=== PATIENT | female | born 1945 | race Caucasian/White ===

== ENCOUNTER 2017-05-31 06:09 | Emergency (ER) | payer MEDICARE ==
[~2017-05-31] VITALS: Ht 157.4 cm; Wt 108.0 kg
[2017-05-31 06:09] VITALS: BP 158/64
[~2017-05-31 06:09] MED LIST: ASPIRIN81 M1 PO; ASPRIN PO; BYETTA10 MCG/0.0 PO; CALCIUM 600600 M2 PO; CALCIUM600 M2 PO; CHOLESTEROL MA600 MG PO; CIPROFLOXACIN500 MG PO; DARVOCET N 1001 TAB PO; FISH OIL 10001000 MG PO; HYDROCODONE BIT1 T11 PO; KEFLEX500 MG PO; LASIX20 MG PO; LEVAQUIN750 MG PO; METFORMIN1000 MG PO; METFORMIN500 MG PO; METOPROLOL SR50 MG PO; MOBIC15 MG PO; NEURONTIN100 MG PO; NEURONTIN300 MG PO; NORCO 325 MG-51 TAB PO; PLAVIX75 MG PO; PRILOSEC20 M1 PO; PRILOSEC40 MG PO; PRINIVIL20 MG PO; PROCARDIA10 MG PO; TRAMADOL50 MG PO; ULTRAM50 MG PO; VICTOZA6 MG/ML SC; VITAMIN D31000 IU PO; VITAMIN E100 I1 PO; ZANTAC150 MG PO; ZOCOR20 MG PO; ZOCOR40 MG PO; [UNRECOGNIZED DRUG - OTHER] PO
[2017-05-31] MEDS ORDERED: CARVEDILOL12.5 MG PO (06:18)
[2017-05-31] MEDS ORDERED: OXYBUTYNIN5 MG PO (06:22)
[2017-05-31] MEDS ORDERED: COCONUT OIL1000 MG PO (06:23)
[2017-05-31] MEDS ORDERED: CINNAMON OIL 1 M1 ML PO (06:24)
[2017-05-31] MEDS ORDERED: TRULICITY0.75 MG/0. SC (06:25)
[2017-05-31] MEDS ORDERED: TURMERIC500 MG PO (06:25)
[2017-05-31 06:38] LABS: BASO % 0.2 % (0.0-1.0); EOS # 0.2 10*3/uL (0.0-0.4); EOS % 2.6 % (1.0-4.0); HEMATOCRIT 37.5 % (37.0-47.0); HEMOGLOBIN 11.6 g/dl (12.0-16.0); LYMPH # 1.8 10*3/uL (1.3-4.4); LYMPH % 19.7 % (27.0-41.0); MEAN CELL VOLUME 86.2 fl (81.0-99.0); MEAN CORPUSCULAR HGB 26.7 pg (27.0-31.0); MEAN CORPUSCULAR HGB CONC 30.9 g/dl (33.0-37.0); MEAN PLATELET VOLUME 10.8 fl (9.6-12.3); MONO # 0.6 10*3/uL (0.1-1.0); MONO % 6.4 % (3.0-9.0); NEUT # 6.3 10*3/uL (2.3-7.9); NEUT % 70.8 % (47.0-73.0); PLATELET COUNT AUTOMATED 179 10*3/uL (130-400); RED BLOOD COUNT 4.35 10*6/uL (4.10-5.10); RED CELL DISTRI WIDTH 15.8 % (0-14.5)
[2017-05-31 06:48] LABS: INTERNATIONAL NORM RATIO 1.1 (2.0-3.5); PROTHROMBIN TIME 11.3 SECONDS (9.0-12.4)
[2017-05-31 06:56] LABS: ALBUMIN 3.4 gm/dl (3.1-4.5); ALKALINE PHOSPHATASE 80 U/L (45-117); BILIRUBIN, TOTAL 0.4 mg/dl (0.2-1.0); BUN 17 mg/dl (7-24); CARBON DIOXIDE 26 mmol/L (21-32); CHLORIDE 103 mmol/L (98-107); EST GLOM FILT AFRICAN AMERICAN > 60 ml/min; GLUCOSE 193 mg/dL (65-99); MAGNESIUM 2.1 mg/dL (1.5-2.1); POTASSIUM 4.1 mmol/L (3.5-5.1); SGOT/AST 17 IU/L (3-35); SGPT/ALT 18 U/L (12-78); SODIUM 139 mmol/L (136-145)
[2017-05-31 07:02] LABS: TROPONIN I < 0.015 ng/ml (<0.045)
[2017-05-31] MEDS ORDERED: IMODIUM A-D2 M3 PO (07:42)
== END 2017-05-31 07:49 | disposition home or self-care (01) ==
LOC: ED 06:09
PROVIDERS: Student in an Organized Health Care Education/Training Program
DX: R19.7 Diarrhea, unspecified (principal); R10.9 Unspecified abdominal pain; I11.0 Hypertensive heart disease with heart failure; I50.9 Heart failure, unspecified; J44.9 Chronic obstructive pulmonary disease, unspecified; K21.9 Gastro-esophageal reflux disease without esophagitis; E11.9 Type 2 diabetes mellitus without complications; Z88.1 Allergy status to other antibiotic agents; Z88.2 Allergy status to sulfonamides; Z79.899 Other long term (current) drug therapy

== ENCOUNTER 2017-09-06 15:24 | Inpatient (IN) | payer MEDICARE ==
[~2017-09-06] VITALS: Ht 157.4 cm; Wt 108.0 kg
[~2017-09-06 15:24] MED LIST changes: +CARVEDILOL12.5 MG PO; +CINNAMON OIL 1 M1 ML PO; +COCONUT OIL1000 MG PO; +IMODIUM A-D2 M3 PO; +OXYBUTYNIN5 MG PO; +TRULICITY0.75 MG/0. SC; +TURMERIC500 MG PO
[2017-09-06 15:43] VITALS: BP 168/90
[2017-09-06 16:24] LABS: BASO % 0.3 % (0.0-1.0); EOS # 0.3 10*3/uL (0.0-0.4); EOS % 4.5 % (1.0-4.0); HEMATOCRIT 37.9 % (37.0-47.0); HEMOGLOBIN 11.8 g/dl (12.0-16.0); LYMPH # 1.4 10*3/uL (1.3-4.4); LYMPH % 19.8 % (27.0-41.0); MEAN CELL VOLUME 85.7 fl (81.0-99.0); MEAN CORPUSCULAR HGB 26.7 pg (27.0-31.0); MEAN CORPUSCULAR HGB CONC 31.1 g/dl (33.0-37.0); MEAN PLATELET VOLUME 10.2 fl (9.6-12.3); MONO # 0.6 10*3/uL (0.1-1.0); MONO % 8.6 % (3.0-9.0); NEUT # 4.6 10*3/uL (2.3-7.9); NEUT % 66.4 % (47.0-73.0); PLATELET COUNT AUTOMATED 198 10*3/uL (130-400); RED BLOOD COUNT 4.42 10*6/uL (4.10-5.10); RED CELL DISTRI WIDTH 15.5 % (0-14.5); WHITE BLOOD COUNT 6.9 10*3/uL (4.8-10.8)
[2017-09-06 16:32] LABS: ACT PARTIAL THROMBO TIME 25.1 SECONDS (20.8-31.5); INTERNATIONAL NORM RATIO 1.1 (2.0-3.5)
[2017-09-06 16:43] LABS: ALBUMIN 3.1 gm/dl (3.1-4.5); BUN 9 mg/dl (7-24); CHLORIDE 102 mmol/L (98-107); MAGNESIUM 2.2 mg/dL (1.5-2.1); POTASSIUM 4.4 mmol/L (3.5-5.1); SGOT/AST 11 IU/L (3-35); SGPT/ALT 17 U/L (12-78); SODIUM 141 mmol/L (136-145); TOTAL PROTEIN 7.4 gm/dL (6.4-8.2)
[2017-09-06 16:46] LABS: ALKALINE PHOSPHATASE 85 U/L (45-117); TROPONIN I < 0.015 ng/ml (<0.045)
[2017-09-06] MEDS ORDERED: LOSARTAN POTASS50 M1 PO (17:34)
[2017-09-06 17:37] VITALS: BP 130/76
[2017-09-06] MEDS ORDERED: CLEOCIN HCL300 MG PO (17:37)
--- NOTE | 2017-09-06 17:44 | NUR ---
PT STABLE AND READY FOR TRANSPORT TO THE FLOOR.
[2017-09-06 17:53] VITALS: BP 154/71
--- NOTE | 2017-09-06 18:05 | NUR ---
A 72, admitted to , under the services of ANISH Damon DO with a diagnosis of CHEST PAIN. Chief complaint is LEFT SIDE BREAST PAIN INTO THE CHEST WITH ONSET OF PAIN STARTING SEVERAL DAYS AGO. C/O HEAVINESS ON THE LEFT SIDE WITH INTERMITTENT PAIN RADIATING INTO THE BACK. Patient arrived via stretcher from ER. Monitor applied. Initial assessment completed. Vital signs taken and recorded. ANISH DAMON DO notified of admission to the unit. Orders received. See assessment for past medical history, medications and allergies. Patient and/or family oriented to unit. [facility] visitation policy reviewed. Clothing/patient valuable form completed. JAELYN AVENDANO
[2017-09-06 18:07] VITALS: BP 154/71
[2017-09-06 20:00] VITALS: BP 158/89
[2017-09-07] VITALS: BP 139/83
--- NOTE | 2017-09-07 01:07 | NUR ---
MISSED 2200 DOSE OF CLYNDAMICIN GIVEN UN SCHEDULED.
[2017-09-07 06:22] LABS: BASO % 0.4 % (0.0-1.0); EOS # 0.3 10*3/uL (0.0-0.4); EOS % 5.1 % (1.0-4.0); HEMATOCRIT 35.7 % (37.0-47.0); HEMOGLOBIN 11.1 g/dl (12.0-16.0); LYMPH # 1.5 10*3/uL (1.3-4.4); LYMPH % 26.7 % (27.0-41.0); MEAN CELL VOLUME 86.7 fl (81.0-99.0); MEAN CORPUSCULAR HGB 26.9 pg (27.0-31.0); MEAN CORPUSCULAR HGB CONC 31.1 g/dl (33.0-37.0); MONO # 0.5 10*3/uL (0.1-1.0); MONO % 8.4 % (3.0-9.0); NEUT # 3.4 10*3/uL (2.3-7.9); NEUT % 58.9 % (47.0-73.0); PLATELET COUNT AUTOMATED 168 10*3/uL (130-400); RED BLOOD COUNT 4.12 10*6/uL (4.10-5.10); RED CELL DISTRI WIDTH 15.5 % (0-14.5); WHITE BLOOD COUNT 5.7 10*3/uL (4.8-10.8)
[2017-09-07 06:32] LABS: ALBUMIN 2.9 gm/dl (3.1-4.5); ALKALINE PHOSPHATASE 72 U/L (45-117); BUN 10 mg/dl (7-24); CHLORIDE 105 mmol/L (98-107); CREATININE 0.56 mg/dL (0.55-1.02); MAGNESIUM 2.1 mg/dL (1.5-2.1); PHOSPHOROUS 3.6 mg/dL (2.5-4.9); SGOT/AST 8 IU/L (3-35); SGPT/ALT 14 U/L (12-78); SODIUM 141 mmol/L (136-145); TOTAL PROTEIN 6.5 gm/dL (6.4-8.2)
[2017-09-07 08:00] VITALS: BP 154/82
[2017-09-07 08:23] LABS: VITAMIN D, 25-HYDROXY 33.9 ng/mL (30-100)
--- NOTE | 2017-09-07 13:35 | NUR ---
DISCHARGED HOME AFTER INSTRUCTIONS GIVEN.
== END 2017-09-07 13:35 | disposition home or self-care (01) | DRG 392 ==
LOC: ED 15:24 → EDHOLD 16:33 → 4E 16:49
PROVIDERS: Emergency Medicine; Internal Medicine Nephrology; ADMIT Internal Medicine
DX: K21.9 Gastro-esophageal reflux disease without esophagitis (principal); D72.1 Eosinophilia; E11.65 Type 2 diabetes mellitus with hyperglycemia; E66.01 Morbid (severe) obesity due to excess calories; E83.41 Hypermagnesemia; Z68.41 Body mass index [BMI] 40.0-44.9, adult; I50.9 Heart failure, unspecified; I11.0 Hypertensive heart disease with heart failure; E53.8 Deficiency of other specified B group vitamins; J44.9 Chronic obstructive pulmonary disease, unspecified; D64.9 Anemia, unspecified; D72.810 Lymphocytopenia; E78.5 Hyperlipidemia, unspecified; R07.89 Other chest pain; I25.2 Old myocardial infarction; Z87.891 Personal history of nicotine dependence; Z98.61 Coronary angioplasty status; Z88.8 Allergy status to other drugs, medicaments and biological substances; Z87.01 Personal history of pneumonia (recurrent); Z87.440 Personal history of urinary (tract) infections; Z90.49 Acquired absence of other specified parts of digestive tract; Z82.49 Family history of ischemic heart disease and other diseases of the circulatory system; Z80.8 Family history of malignant neoplasm of other organs or systems; Z79.82 Long term (current) use of aspirin; Z79.84 Long term (current) use of oral hypoglycemic drugs; Z79.899 Other long term (current) drug therapy